=== PATIENT | male | born 1955 | race Caucasian/White ===

== ENCOUNTER → 2016-11-06 | Outpatient (CLI) | payer BC ==
--- NOTE | 2016-11-06 12:28 | DIAGNOSTIC IMAGING REPORT ---
GI SERIES W/AIR ROUTINE CLINICAL HISTORY: GASTRITISheartburn COMPARISON STUDY: 02/14/2011 FLUOROSCOPY TIME: 2.3 minutes. 22 fluoroscopic spot images were acquired.. FINDINGS: The patient swallowed a present granules and barium without difficulty. No esophageal or gastric masses are visualized. There is a small sliding hiatal hernia with distal esophageal ring. The duodenal bulb appears normal. There is no gastric outlet obstruction. The ligament Treitz is located in the normal anatomical position. IMPRESSION: Small sliding hiatal hernia with a distal esophageal ring. Otherwise normal study. Electronically signed by: Ze Antonio M.D. 11/06/2016 12:27 PM Dictated Date/Time: 11/06/2016 12:25 PM
== END | disposition home or self-care (01) ==
LOC: C.RAD 11:42
PROVIDERS: ATTEND Family Medicine
DX: K29.70 Gastritis, unspecified, without bleeding (principal); K29.90 Gastroduodenitis, unspecified, without bleeding; K44.9 Diaphragmatic hernia without obstruction or gangrene

== ENCOUNTER 2017-06-19 14:06 | Emergency (ER) | payer BC ==
[~2017-06-19] VITALS: Ht 182.9 cm; Wt 92.7 kg
[2017-06-19 14:21] VITALS: TEMP 37.8; O2SAT 96; Ht 182.9 cm; Wt 92.7 kg
[2017-06-19] MEDS ORDERED: SODIUM CHLORIDE 0.9% 500ML 500 ML IV STA (14:21)
[2017-06-19 14:35] LABS: BASO % 0.2 %; BASO ABS # 0.02 K/uL (0-0.2); EOS % 1.3 %; EOS ABS # 0.12 K/uL (0-0.5); HEMOGLOBIN 17.6 g/dL (14.0-18.0); IG# 0.02 K/uL (0.00-0.02); LYMPH ABS # 1.53 K/uL (1.2-3.4); MEAN CELL VOLUME 92.9 fL (80-100); MEAN CORPUSCULAR HEMOGLOBIN 32.7 pg (25-34); MEAN CORPUSCULAR HGB CONC 35.2 g/dl (32-36); MEAN PLATELET VOLUME 10.7 fL (7.4-10.4); MONO % 8.2 %; MONO ABS # 0.74 K/uL (0.11-0.59); NEUT % 73.1 %; NEUT ABS # 6.57 K/uL (1.4-6.5); PLATELET COUNT 255 K/uL (130-400); RED CELL DISTRIBUTION WIDTH CV 13.5 % (11.5-14.5); RED CELL DISTRIBUTION WIDTH SD 45.9 fL (36.4-46.3)
--- NOTE | 2017-06-19 14:45 | EMERGENCY ROOM VISIT NOTE ---
History Report prepared by Jackie: Kalyani Saxena Under the Supervision of: Dr. Anders Eisenberg M.D. First contact with patient: 14:13 Chief Complaint: PALPITATIONS Stated Complaint: PALPITATIONS History of Present Illness The patient is a 62 year old white male with a past medical history of reflux and hyperlipidemia who presents to the ED with a cc of palpitations beginning 1 hour CUT PRESSMAN. The patient had gotten out of the shower this afternoon and was getting dressed when he suddenly developed palpitations. He is no longer experiencing symptoms. Positive lightheadedness with his symptoms. He has had some recent sinus congestion. Negative fevers, chills, cough, diarrhea, and urinary symptoms. Pt denies hx of a-fib. He denies any dietary supplements or stimulant usage. He drinks coffee but denies any recent changes to his caffeine intake. Pt was brought to ED by EMS. Source of History: patient Onset: 1 hour CUT PRESSMAN Position: chest Quality: other (palpitations) Modifying Factors (Relieving): other (time) Associated Symptoms: No fevers, No chills, No cough, No diarrhea, No urinary symptoms Note: Pt notes lightheadedness with Sx. Review of Systems See HPI for pertinent positives and negatives. A total of ten systems were reviewed and were otherwise negative. Past Medical & Surgical Medical Problems: (1) Hyperlipidemia (2) Reflux esophagitis Family History No pertinent history stated. Social History Marital Status: Housing Status: lives with family Current/Historical Medications Scheduled Simvastatin (Zocor), 20 MG PO QPM Scheduled PRN Aspirin (Aspirin), 325 MG PO UD PRN for Pain Oxymetazoline Hcl (Nasal Decongestant [place]), 1 SPRAY NA UD PRN for Nasal Congestion Physical Exam Vital Signs Date Time Temp Pulse Resp B/P (MAP) Pulse Ox O2 Delivery O2 Flow Rate FiO2 06/19/17 15:58 85 20 140/93 98 06/19/17 14:21 37.8 84 18 158/89 97 Room Air 06/19/17 14:21 87 06/19/17 14:21 96 Room Air 06/19/17 14:21 97 Room Air Physical Exam GENERAL: Awake, alert, well-appearing, NAD HENT: Normocephalic, atraumatic. EYES: Normal conjunctiva. Sclera non-icteric. NECK: Supple. No nuchal rigidity. FROM. Thyroid not palpable over anterior neck RESPIRATORY: CTAB, no rhonchi, wheezing, crackles CARDIAC: RRR, no MRG ABDOMEN: Soft, NTND, BS+ MSK: No chest wall TTP, no LE edema NEURO: GCS 15, CN 2-12 intact, moves all 4s on command SKIN: No rash or jaundice noted. Medical Decision & Procedures ER Provider Diagnostic Interpretation: Radiology results as stated below per my review and radiologist interpretation: TWO VIEW CHEST CLINICAL HISTORY: Palpitations. FINDINGS: PA and lateral chest radiographs are obtained. No prior studies are available for comparison at the time of dictation. The cardiomediastinal silhouette is unremarkable. The lungs and pleural spaces are clear. There is no pneumothorax. The bony thorax appears intact. IMPRESSION: No active disease in the chest. Electronically signed by: Lonny Olivera M.D. 06/19/2017 2:59 PM Dictated Date/Time: 06/19/2017 2:59 PM Laboratory Results 06/19/17 13:41 Red Blood Count 5.38, Mean Corpuscular Volume 92.9, Mean Corpuscular Hemoglobin 32.7, Mean Corpuscular Hemoglobin Concent 35.2, Mean Platelet Volume 10.7, Neutrophils (%) (Auto) 73.1, Lymphocytes (%) (Auto) 17.0, Monocytes (%) (Auto) 8.2, Eosinophils (%) (Auto) 1.3, Basophils (%) (Auto) 0.2, Neutrophils # (Auto) 6.57, Lymphocytes # (Auto) 1.53, Monocytes # (Auto) 0.74, Eosinophils # (Auto) 0.12, Basophils # (Auto) 0.02 06/19/17 13:41 Test 06/19/17 13:41 White Blood Count 9.00 K/uL (4.8-10.8) Red Blood Count 5.38 M/uL (4.7-6.1) Hemoglobin 17.6 g/dL (14.0-18.0) Hematocrit 50.0 % (42-52) Mean Corpuscular Volume 92.9 fL (80-100) Mean Corpuscular Hemoglobin 32.7 pg (25-34) Mean Corpuscular Hemoglobin Concent 35.2 g/dl (32-36) Platelet Count 255 K/uL (130-400) Mean Platelet Volume 10.7 fL (7.4-10.4) Neutrophils (%) (Auto) 73.1 % Lymphocytes (%) (Auto) 17.0 % Monocytes (%) (Auto) 8.2 % Eosinophils (%) (Auto) 1.3 % Basophils (%) (Auto) 0.2 % Neutrophils # (Auto) 6.57 K/uL (1.4-6.5) Lymphocytes # (Auto) 1.53 K/uL (1.2-3.4) Monocytes # (Auto) 0.74 K/uL (0.11-0.59) Eosinophils # (Auto) 0.12 K/uL (0-0.5) Basophils # (Auto) 0.02 K/uL (0-0.2) RDW Standard Deviation 45.9 fL (36.4-46.3) RDW Coefficient of Variation 13.5 % (11.5-14.5) Immature Granulocyte % (Auto) 0.2 % Immature Granulocyte # (Auto) 0.02 K/uL (0.00-0.02) Anion Gap 9.0 mmol/L (3-11) Est Creatinine Clear Calc Drug Dose 84.3 ml/min Estimated GFR () 92.6 Estimated GFR (Non- 79.9 BUN/Creatinine Ratio 17.4 (10-20) Calcium Level 9.7 mg/dl (8.5-10.1) Magnesium Level 2.0 mg/dl (1.8-2.4) Total Bilirubin 0.8 mg/dl (0.2-1) Direct Bilirubin 0.2 mg/dl (0-0.2) Aspartate Amino Transf (AST/SGOT) 20 U/L (15-37) Alanine Aminotransferase (ALT/SGPT) 35 U/L (12-78) Alkaline Phosphatase 83 U/L (45-117) Total Protein 6.9 gm/dl (6.4-8.2) Albumin 3.8 gm/dl (3.4-5.0) Thyroid Stimulating Hormone (TSH) 2.400 uIu/ml (0.300-4.500) Laboratory results reviewed by me. Medications Administered Medications (Trade) Dose Ordered Sig/Marcia Route Start Time Stop Time Status Last Admin Dose Admin Sodium Chloride 500 ml @ 500 mls/hr Q1H STAT IV 06/19/17 14:21 06/19/17 15:20 DC 06/19/17 14:47 500 MLS/HR ECG Indication: palpitations Rate (beats per minute): 78 Rhythm: normal sinus Findings: left axis deviation, other (normal intervals; T-wave flattening in lead 3; no other ST changes or TWI) Comparison ECG Date: ECG per my interpretation ED Course 1413: The patient was evaluated in room C12A. A complete history and physical exam was performed. 1505: I updated the patient on his results. 1522: I reassessed the patient at this time. He is feeling better and resting comfortably. I discussed the results and treatment plan with the patient. I answered all pertaining questions that he had. He expressed understanding and verbalized agreement. The patient will be discharged home. Medical Decision Differential diagnosis: Etiologies such as premature contractions, electrolyte abnormality, cardiac dysrhythmia, thyroid dysfunction, pulmonary embolism, infection, gastrointestinal, as well as others were entertained. The patient is a 62 year old white male with a past medical history of reflux and hyperlipidemia who presents to the ED with a cc of palpitations beginning 1 hour CUT PRESSMAN. Patient was seen and evaluated the bedside. Patient was complaining some palpitations. Patient this states this began around 1 PM. States that it did not last very long. Patient has no prior history of an irregular heartbeat. 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 Patient denies any stimulant, weight loss supplements, or herbal supplements. Patient denies any lightheadedness or recurrent symptoms at this time. Patient did have blood work, EKG, TSH, chest x -ray completed. Patient's blood work is fairly unremarkable. Patient has normal hemoglobin. White blood cell count within normal limits. TSH normal. Patient's chest x-ray is clear. Patient's EKG does not show any overt arrhythmia and the patient does not have any ischemic changes. Given this the patient may have some sort of normal sinus with sinus arrhythmia are may have some other undetected arrhythmia which is not currently detected with EKG. The patient has had no recurrence of symptoms. Patient was told to avoid things like alcohol, tobacco, stimulants, caffeine. Patient follow-up with his PCP for further evaluation and treatment and possible Holter monitor. Patient was deemed suitable for outpatient follow-up and treatment at this time. All cautions were answered. Patient was given strict follow-up, discharge, and return precautions. All questions were answered. Patient was deemed suitable for outpatient follow-up at this time. Patient agreed with the plan of care and was safely discharged home. The chart was completed utilizing [employer] voice recognition software. Grammatical errors, random word insertions, pronoun errors, and incomplete sentences are an occasional consequence of this system due to software limitations, ambient noise, and hardware issues. Any formal questions or concerns about the content, text, or information contained within the body of this dictation should be directly addressed to the physician for clarification. Medication Reconcilliation Current Medication List: was personally reviewed by me Blood Pressure Screening Patient's blood pressure: Elevated blood pressure Blood pressure disposition: Referred to PCP Impression Primary Impression: Palpitations Scribe Attestation The scribe's documentation has been prepared under my direction and personally reviewed by me in its entirety. I confirm that the note above accurately reflects all work, treatment, procedures, and medical decision making performed by me. Departure Information Dispostion Home / Self-Care Referrals Harmeet Donovan M.D. (PCP) Forms HOME CARE DOCUMENTATION FORM, IMPORTANT VISIT INFORMATION, WORK / SCHOOL INSTRUCTIONS Patient Instructions ED Palpitations, My [facility] Additional Instructions Please return to the emergency department if you have worsening or recurrent symptoms not amenable to at-home treatment. Please call for a follow-up appointment with her primary care physician. Please take your medications as prescribed. If you have other concerns and/or complaints please feel free to also call your primary care physician's office or return the ED for further evaluation, management, and treatment. Consider avoiding alcohol, tobacco, caffeine. Continue to hydrate well with clear liquids. Follow-up with her primary care physician discuss further outpatient follow-up and treatment for your symptoms of palpitations. Take your medications as prescribed. You have been examined and treated today on an emergency basis only. This is not a substitute for, or an effort to provide, complete comprehensive medical care. It is impossible to recognize and treat all injuries or illnesses in a single emergency department visit. It is therefore important that you follow up closely with [facility], your PCP, and/or your specialist(s). Call as soon as possible for an appointment. Thank you for your time and consideration. I look forward to speaking with you again soon. Please don't hesitate to call us if you have any questions.
--- NOTE | 2017-06-19 15:01 | DIAGNOSTIC IMAGING REPORT ---
TWO VIEW CHEST CLINICAL HISTORY: Palpitations. FINDINGS: PA and lateral chest radiographs are obtained. No prior studies are available for comparison at the time of dictation. The cardiomediastinal silhouette is unremarkable. The lungs and pleural spaces are clear. There is no pneumothorax. The bony thorax appears intact. IMPRESSION: No active disease in the chest. Electronically signed by: Lonny Olivera M.D. 06/19/2017 2:59 PM Dictated Date/Time: 06/19/2017 2:59 PM
[2017-06-19 15:04] LABS: ALBUMIN 3.8 gm/dl (3.4-5.0); CALCIUM 9.7 mg/dl (8.5-10.1); CREATININE 1.01 mg/dl (0.60-1.40)
[2017-06-19 15:15] LABS: TOTAL PROTEIN 6.9 gm/dl (6.4-8.2)
[2017-06-19] MEDS ORDERED: SIMV20TA2 PO (15:17)
[2017-06-19] MEDS ORDERED: ASPI325T45 PO (15:17)
[2017-06-19] MEDS ORDERED: OXYM0.0525 (15:17)
[2017-06-19 15:58] VITALS: BP 140/93; PULSE 85; O2SAT 98
== END 2017-06-19 16:00 | disposition home or self-care (01) ==
LOC: EDBD 14:06 → C.EDC 14:07
DX: R00.2 Palpitations (principal); R42 Dizziness and giddiness